=== PATIENT | female | born 1970 | race Caucasian/White ===

== ENCOUNTER 2018-10-20 08:49 | Day surgery (SDC) | payer OTHER ==
[~2018-10-20] VITALS: Ht 167.6 cm; Wt 67.1 kg
[2018-10-20] VITALS (14 sets, daily range): BP systolic 101–119; BP diastolic 54–78; PULSE 78–92; RESP 14–24; Ht 167.6 cm; Wt 67.1 kg
[2018-10-20] MEDS ORDERED: SOD CHLORIDE 0.9% 1,000 ML IV SCH (09:00)
[2018-10-20] MEDS ORDERED: CEFAZOLIN 2 GM/50 ML (PMX) 50 ML IVPB ONE (09:00)
--- NOTE | 2018-10-20 10:54 | PREAC ---
Date/Time of Note Date/Time of Note DATE: 10/20/18 TIME: 10:53 Anesthesia Eval and Record Evaluation Time Pre-Procedure Interview DATE: 10/20/18 TIME: 10:53 Age 48 Sex female NPO: 8 hrs Preoperative diagnosis scalp mass Planned procedure excision of scalp mass Past Medical History Past Medical History: Includes Pulm: Smoking Hx Surgery & Anesthesia Issues No known issue Meds Anticoagulation: No Beta Rasheeda within 24 hr: No Reason Beta Rasheeda not given: Pt. not on B-Rasheeda No Active Prescriptions or Reported Meds Current Medications Sodium Chloride 1,000 ml @ 75 mls/hr [id number] IV ; Start 10/20/18 at 09:00; Stop 10/20/18 at 22:19 Meds reviewed: Yes Allergies Coded Allergies: No Known Allergy (Unverified , 10/20/18) Allergies Reviewed: Yes Labs/Studies Labs Reviewed: Reviewed by anesthesiologist Result Diagram: 10/20/18 1012 10/20/18 0940 Laboratory Tests 10/20/18 09:40 10/20/18 10:12 test: Negative Studies: ECG Pre-procedure Exam Last vitals Vital Signs Date Temp Pulse Resp B/P (MAP) Pulse Ox O2 O2 Flow FiO2 Time Delivery Rate 10/20/18 98.1 83 18 110/66 97 Room Air 09:55 (81) Airway: Adequate mouth opening, Adequate thyromental dist Mallampati: Mallampati II Teeth: Normal Lung: Normal Heart: Normal ASA Physical Status ASA physical status: 2 Emergency: None Planned Anesthetic General/MAC: LMA Planned Pain Management Parenteral pain med Pre-operative Attestations Prior to commencing anesthesia and surgery, the patient was re-evaluated, there was verification of: *The patient's identity *The results of appropriate recent lab work and preoperative vital signs *The above evaluation not changing prior to induction *Anesthetic plan, risk benefits, alternative and complications discussed with patient/family; questions answered; patient/family understands, accepts and wishes to proceed. NATASHA SANDERSON MD October 20, 2018 10:54
[2018-10-20] MEDS ORDERED: BUPIVACAINE 0.5% (SDV) 30 ML INJ ONE (10:55)
[2018-10-20] MEDS ORDERED: LIDOCAINE 2% (MDV) 20 ML INJ ONE (10:55)
[2018-10-20] MEDS ORDERED: FENTAnyl 50 MCG/ML VIAL IV PRN (11:00)
[2018-10-20] MEDS ORDERED: DIPHENHYDRAMINE 50 MG INJ IV PRN (11:00)
[2018-10-20] MEDS ORDERED: HYDROmorphONE 1 MG/5 ML IV SYRINGE IV PRN ×3 (11:00)
[2018-10-20] MEDS ORDERED: MEPERIDINE 25 MG INJ IV PRN (11:00)
[2018-10-20] MEDS ORDERED: ONDANSETRON 4 MG INJ IV PRN (11:00)
[2018-10-20] MEDS ORDERED: PROCHLORPERAZINE 10 MG INJ IV PRN (11:00)
[2018-10-20] MEDS ORDERED: LIDOCAINE 2% (SDV) 5 ML INJ ONE (11:05)
[2018-10-20] MEDS ORDERED: PROPOFOL 20 ML ONE (11:05)
[2018-10-20] MEDS ORDERED: FENTAnyl 50 MCG/ML VIAL ONE (11:06)
[2018-10-20] MEDS ORDERED: CEFAZOLIN 1 GM INJ ONE (11:23)
[2018-10-20] MEDS ORDERED: FAMOTIDINE 20 MG INJ ONE (11:23)
[2018-10-20] MEDS ORDERED: ONDANSETRON 4 MG INJ ONE (11:23)
[2018-10-20] MEDS ORDERED: DEXAMETHASONE 4 MG/ML 5 ML INJ ONE (11:23)
[2018-10-20] MEDS ORDERED: ACETAMINOPHEN 1000MG/100ML IV 100 ML IVPB PRN (11:30)
[2018-10-20] MEDS ORDERED: EPHEDrine 25 MG/5 ML SYG ONE (11:33)
[2018-10-20] MEDS ORDERED: BACITRACIN/POLYMYXIN 28.35 GM OINT TOP ONE (11:41)
--- NOTE | 2018-10-20 11:53 | OPR ---
Date/Time of Note Date/Time of Note DATE: 10/20/18 TIME: 11:50 Operative Report Procedure Date: October 20, 2018 Preoperative Diagnosis right scalp mass Postoperative Diagnosis same Operation/Procedure Performed 1. excision of right scalp mass 5 cm mass 5 cm incision 2. localized adjacent tissue transfer with the use of skin flaps 10 sq cm defect of scalp 3. therapeutic injection of subcutaneous local anesthesia Surgeon see signature line Screw Machine Operator none Anesthesia Type: general Estimated Blood Loss: 0 - 10 ml's Transfusion none Specimen scalp mass Grafts/Implants none Complications none Pt Condition Post Procedure: stable Indications This is a 48-year-old female with a scalp mass for many years. She required surgical excision of the scalp mass. Risks alternatives benefits and personally discussed the patient. Potential complications including but not limited to bleeding infection wound dehiscence and scar alopecia were discussed the patient. Patient expressed understanding and consents to the operation. Procedure Description Patient is taken to the OR and prepped and draped in usual sterile fashion. Surgical time was performed. IV antibiotics given. Elliptical incision was made over the scalp mass to 15 blade. Dissection with cautery skin onto the mass. The mass was circumferentially excised. In addition to capsule and additional skin area is excised to prevent recurrence. Good hemostasis established in the surgical site. Due to tissue defect localization to his transfer with these of skin flaps was performed. Multilayer closed with interrupted 3-0 Vicryl in interrupted 2-0 Vicryl and running 4-0 Monocryl. Therapeutic subcu taste local anesthesia was injected at the incision site. Bacitracin and dry dressing is applied. Reg RODRIGUEZ October 20, 2018 11:53
[2018-10-20] MEDS ORDERED: HYDROCODONE/APAP (5/325) TAB PO ONE (12:00)
--- NOTE | 2018-10-20 12:13 | PAC ---
Date/Time of Note Date/Time of Note DATE: 10/20/18 TIME: 12:13 Post-Anesthesia Notes Post-Anesthesia Note Last documented vital signs Vital Signs Date Temp Pulse Resp B/P (MAP) Pulse Ox O2 O2 Flow FiO2 Time Delivery Rate 10/20/18 88 23 105/62 100 Room Air 12:05 (76) 10/20/18 6.0 12:00 10/20/18 97.6 11:55 Activity: WNL Respiratory function: WNL Cardiovascular function: WNL Mental status: Baseline Pain reasonably controlled: Yes Hydration appropriate: Yes Nausea/Vomiting absent: Yes NATASHA SANDERSON MD October 20, 2018 12:13
[2018-10-20] MEDS ORDERED: ACETAMINOPHEN 500 MG TAB PO PRN (12:30)
[2018-10-20] MEDS ORDERED: ACETAMINOPHEN 325 MG TAB ONE (12:35)
[2018-10-20] MEDS ORDERED: ACETAMINOPHEN 325 MG TAB PO ONE (13:00)
--- NOTE | 2018-10-23 17:36 | RADRPT ---
Vent Rate: 70 bpm RR Interval: 856 msec MD Interval: 143 msec QRS Duration: 78 msec QT Interval: 393 msec QTC Interval: 425 msec P-R-T [place]: 62 - 84 - 70 degrees Sinus rhythm...normal Electronically Signed By: Kan Spivey
== END 2018-10-20 13:30 | disposition home or self-care (01) ==
LOC: SDS 08:49
PROVIDERS: ATTEND Surgery
DX: L72.11 Pilar cyst (principal); R22.0 Localized swelling, mass and lump, head; Z87.891 Personal history of nicotine dependence
CPT/HCPCS: 14020; 71045; 80053; 85025; 85610; 85730; 88307; 93005; J0690; J1100; J2405; J3010; Z7512; Z7610